=== PATIENT | male | born 1960 | race Caucasian/White ===

== ENCOUNTER 2018-11-01 21:45 | Emergency (ER) | payer MEDICAID ==
[~2018-11-01] VITALS: Ht 172.7 cm; Wt 86.2 kg
[~2018-11-01 21:45] MED LIST: FLA250 PO; LEVO500T20 PO; TAMS-11 PO
[2018-11-01 22:00] VITALS: BP_SYST 120
[2018-11-01 23:36] VITALS: BP_SYST 128
== END 2018-11-01 23:36 | disposition home or self-care (01) ==
LOC: SED 21:45
DX: N43.3 Hydrocele, unspecified (principal); R03.0 Elevated blood-pressure reading, without diagnosis of hypertension; Z79.899 Other long term (current) drug therapy
CPT/HCPCS: 76870-TC; 99284